=== PATIENT | female | born 1955 | race Caucasian/White ===

== ENCOUNTER 2025-05-23 09:31 | Outpatient (CLI) | payer MEDICARE, SELFPAY ==
[2025-05-23 09:32] LABS: ALT 27 U/L (10-49); AST 29 U/L (<34); Albumin 4.5 g/dL (3.4-5.0); Alkaline Phosphatase 57 U/L (46-116); Anion Gap 5.6 mmol/L (3-11); BUN 16 mg/dL (9-23); Bilirubin, Total 0.50 mg/dL (0.2-1.2); CO2 27.4 mmol/L (20.0-31.0); Calcium 9.0 mg/dL (8.3-10.6); Chloride 105 mmol/L (98-107); Cholesterol 212 mg/dL (<200); Glucose 100 mg/dL (74-106); HDL Cholesterol 116 mg/dL (>40); Potassium 4.2 mmol/L (3.5-5.1); Sodium 138 mmol/L (136-145); Total Protein 7.1 g/dL (5.7-8.2)
[2025-05-23 10:42] LABS: Hemoglobin A1C 5.8 % (<5.7)
[2025-05-23 18:46] LABS: HIV-1/2 Ag & Ab Screen Negative (Negative)
[2025-05-23 18:50] LABS: Hepatitis C Ab w Rflx HCV PCR Negative (Negative)
== END 2025-05-23 09:32 | disposition home or self-care (01) ==
LOC: LBO 09:31
PROVIDERS: PCP Nurse Practitioner Family; Visit Provider Nurse Practitioner Family
DX: R73.01 Impaired fasting glucose (principal); F41.9 Anxiety disorder, unspecified; Z00.00 Encounter for general adult medical examination without abnormal findings; I10 Essential (primary) hypertension; M81.0 Age-related osteoporosis without current pathological fracture; K57.90 Diverticulosis of intestine, part unspecified, without perforation or abscess without bleeding
CPT/HCPCS: 36415; 80053; 80061; 86803; 87389; 83036

== ENCOUNTER → 2025-06-02 00:46 | Outpatient (CLI) | payer MEDICARE, SELFPAY ==
--- NOTE | 2025-06-02 06:45 | DI.MAMMO_ITS ---
Exam(s) MAMMO SCREENING EXAM: MAMMO SCREENING CLINICAL HISTORY: screening,Z12.39. TECHNIQUE: Bilateral full field digital CC and MLO mammographic images were obtained with 3D tomosynthesis and utilizing computer aided detection (CAD). COMPARISON: Prior outside mammograms were reviewed. FINDINGS: There has been no significant change in the appearance and distribution of the fibroglandular tissue. Benign-appearing microcalcification group posterior 0 laterally located in the left breast is unchanged from prior mammograms. There are no new spiculated masses nor malignant appearing microcalcification groups. There is no significant architectural distortion nor skin thickening-retraction. IMPRESSION: No radiographic evidence of malignancy. Stable benign findings. BI-RADS Category 2 - Benign Findings Breast Density - Category B - There are scattered areas of fibroglandular density. Breast density Category C or D implies that the patient has dense breast tissue. Dense breast tissue can make it harder to find cancer on a mammogram. Dense breast tissue is also associated with an increased risk of breast cancer. This information about the result of the mammogram report was provided to the patient to raise their awareness. Use this report when you speak with the patient about their risks for breast cancer, which includes their family history. At that time, you may recommend additional screening tests (Ultrasound or MRI) as these tests may add significant information. A negative radiographic report should not delay biopsy if a dominant or clinically suspicious mass is present. Up to ten percent of cancers are not identified on mammography. A negative report may reinforce clinical impression. Adenosis and dense breasts may obscure an underlying neoplasm. False positive reports average 6 to 10%. Patient will receive a letter notifying them of these results.
--- NOTE | 2025-06-02 13:05 | DI.DEXA_ITS ---
Exam(s) XR DEXA BONE DENSITY W/WO DELANO EXAM: XR DEXA BONE DENSITY W/WO DELANO CLINICAL HISTORY: screening,POSTMENOPAUSAL STATUS,OSTEOPOROSIS, Z78.0 TECHNIQUE: COMPARISON: DOC BD DXA SCREENING from 12/24/2018 FINDINGS: Lateral Spine Image: Unremarkable. No compression deformities identified. Left hip: Total T-Score: -1.0. Compares to -1.7 on the prior examination. Total Z-Score: 0.6 T- and Z-scores: There is no evidence of osteoporosis. Lumbar Spine: Total T-Score: -2.5. This compares to -3.3 on the prior examination. Total Z-Score: -0.3 T- and Z-scores: Findings are consistent with osteoporosis. IMPRESSION: There is osteoporosis seen in the lumbar spine.
== END ==
LOC: DI 00:46
PROVIDERS: PCP Nurse Practitioner Family; Visit Provider Nurse Practitioner Family
DX: Z78.0 Asymptomatic menopausal state (principal); M81.0 Age-related osteoporosis without current pathological fracture; Z12.31 Encounter for screening mammogram for malignant neoplasm of breast
CPT/HCPCS: 77063; 77067; 77080

== ENCOUNTER 2025-06-06 13:05 | Outpatient (REF) | payer MEDICARE, SELFPAY ==
--- NOTE | 2025-06-06 10:00 | PAPFT_PTH ---
PATIENT: Zaira Tompkins LOC: [facility] U#:[id number] AGE/SX: 69/F ROOM: RE06/06/[address]: Ana Paula Danielson MD : [id number] BED: DIS: 06/06/2025 SPEC #: [id number] RECD: 06/06/25 13:21 STATUS: LYRIC REObey #: [id number] ROSEMARY: 06/06/25 10:[address]: Ana Paula Danielson DEPT: [facility] Cytology RECD BY: Maggie Delatorre ENTERED: 06/06/25 13:21 SP TYPE: PAPFT OTHR DR: Sakshi Betancourt, MICA Tissues: 1 - CX/ENDOCX FOR PAP SMEARS Procedures: PAP THIN PREP/[facility] Screening HPV DNA PROBE Comments: [id number] (HPV 16 & 18/45)
== END 2025-06-06 13:06 | disposition home or self-care (01) ==
LOC: LBO 13:05
PROVIDERS: PCP Nurse Practitioner Family; Visit Provider Obstetrics & Gynecology
DX: Z12.4 Encounter for screening for malignant neoplasm of cervix (principal)
CPT/HCPCS: 88142; 87624